=== PATIENT | female | born 1955 | race Caucasian/White ===

== ENCOUNTER 2016-11-01 12:32 | Emergency (ER) | payer MEDICARE, OTHER ==
[2016-11-01 14:57] LABS: BILIRUBIN NEGATIVE (NEGATIVE); BLOOD 1+ Ery/uL (NEGATIVE); CLARITY CLEAR (CLEAR); COLOR YELLOW (YELLOW); GLUCOSE (U) NORMAL (NORMAL); KETONE (U) TRACE mg/dL (NEGATIVE); LEUKOCYTES 2+ Leu/uL (NEGATIVE); NITRITE NEGATIVE (NEGATIVE); PROTEIN NEGATIVE (NEGATIVE); SPECIFIC GRAVITY >=1.030 (1.001-1.030); UROBILINOGEN 0.2 mg/dL (0.2-1.0); pH 5.5 (5.0-9.0)
[2016-11-01 15:18] LABS: BACTERIA TRACE; URINARY WBC 20-50
[2016-11-01 15:26] LABS: BASOPHIL 0.4 % (0-2); EOSINOPHIL 0.9 % (0-5); HCT 32.1 % (37.0-47.0); HGB 9.5 g/dl (12.5-16.0); LYMPHOCYTE 16.2 % (15-48); MCH 22.8 pg (25.0-31.0); MCHC 29.6 g/dL (32.0-36.0); MCV 77.2 fL (78.0-100.0); MONOCYTE 7.9 % (0-12); MPV 8.4 fL (6.0-9.5); NEUTROPHIL 74.6 % (41-80); PLT 533 K/uL (150-400); RBC 4.16 M/uL (4.20-5.40); RDW 18.7 % (11.5-14.0); WBC 9.8 K/uL (4.0-10.5)
[2016-11-01 15:48] LABS: CREATININE 0.6 mg/dL (0.5-1.0); POTASSIUM 4.5 mmol/L (3.5-5.1)
== END 2016-11-01 17:31 | disposition home or self-care (01) ==
LOC: FER 12:32
PROVIDERS: Internal Medicine
DX: S29.012A Strain of muscle and tendon of back wall of thorax, initial encounter (principal); N39.0 Urinary tract infection, site not specified; M79.604 Pain in right leg; R06.02 Shortness of breath; E11.9 Type 2 diabetes mellitus without complications; Z88.2 Allergy status to sulfonamides; Z86.711 Personal history of pulmonary embolism; Z79.01 Long term (current) use of anticoagulants; Z79.899 Other long term (current) drug therapy; Z86.718 Personal history of other venous thrombosis and embolism; Z79.84 Long term (current) use of oral hypoglycemic drugs
CPT/HCPCS: 36415; 71020; 71275; 80048; 81001; 85025; Q9967

== ENCOUNTER 2016-12-19 07:22 | Emergency (ER) | payer MEDICARE, OTHER ==
[2016-12-19 08:06] LABS: BASOPHIL 0.8 % (0-2); EOSINOPHIL 1.1 % (0-5); HCT 28.8 % (37.0-47.0); HGB 8.4 g/dl (12.5-16.0); MCH 22.3 pg (25.0-31.0); MCHC 29.2 g/dL (32.0-36.0); MCV 76.4 fL (78.0-100.0); MONOCYTE 8.2 % (0-12); MPV 8.1 fL (6.0-9.5); NEUTROPHIL 73.9 % (41-80); PLT 562 K/uL (150-400); RBC 3.77 M/uL (4.20-5.40); RDW 20.5 % (11.5-14.0)
[2016-12-19 08:13] LABS: PROTHROMBIN TIME 12.8 SECONDS (11.7-14.0); PTT 34.5 SECONDS (23.2-31.4)
[2016-12-19 08:14] LABS: WBC 8.3 K/uL (4.0-10.5)
[2016-12-19 08:15] LABS: D-DIMER 0.29 ug/mLFEU (0.00-0.41)
[2016-12-19 08:28] LABS: ALBUMIN 4.3 g/dL (3.5-5.0); BILIRUBIN - TOTAL 0.3 mg/dL (0.1-1.0); CREATININE 0.6 mg/dL (0.5-1.0); GLOBULIN (CALCULATION) 2.9 g/dL (2.2-4.2); POTASSIUM 4.2 mmol/L (3.5-5.1); TOTAL PROTEIN 7.2 g/dL (6.4-8.3)
[2016-12-19 08:34] LABS: BILIRUBIN NEGATIVE (NEGATIVE); BLOOD NEGATIVE Ery/uL (NEGATIVE); COLOR YELLOW (YELLOW); GLUCOSE (U) NORMAL (NORMAL); KETONE (U) NEGATIVE (NEGATIVE); LEUKOCYTES 2+ Leu/uL (NEGATIVE); NITRITE NEGATIVE (NEGATIVE); PROTEIN NEGATIVE (NEGATIVE); SPECIFIC GRAVITY 1.025 (1.001-1.030); UROBILINOGEN 0.2 mg/dL (0.2-1.0); pH 5.5 (5.0-9.0)
[2016-12-19 08:35] LABS: CLARITY HAZY (CLEAR)
[2016-12-19 08:36] LABS: MUCOUS TRACE; URINARY RBC RARE
== END 2016-12-19 08:52 | disposition home or self-care (01) ==
LOC: FER 07:22
PROVIDERS: Emergency Medicine
DX: R05 Cough (principal); M54.9 Dorsalgia, unspecified; E11.9 Type 2 diabetes mellitus without complications; E07.9 Disorder of thyroid, unspecified; Z86.711 Personal history of pulmonary embolism; Z84.89 Family history of other specified conditions; Z88.2 Allergy status to sulfonamides; Z79.01 Long term (current) use of anticoagulants; Z79.84 Long term (current) use of oral hypoglycemic drugs; Z79.891 Long term (current) use of opiate analgesic; Z79.899 Other long term (current) drug therapy
CPT/HCPCS: 36415; 71020; 80053; 81001; 85025; 85379; 85610; 85730; 99283

== ENCOUNTER 2020-10-13 08:54 | Emergency (ER) | payer MEDICARE, OTHER, SELFPAY ==
[~2020-10-13 08:54] MED LIST: MOTRIN600 MG PO
[2020-10-13] MEDS ORDERED: LEVOTHYROXINE75 MC1 PO (09:13)
[2020-10-13] MEDS ORDERED: POTASSIUM CHLO10 ME1 PO (09:13)
[2020-10-13] MEDS ORDERED: HYDROCODON-ACE1 EAC2 PO (09:14)
[2020-10-13] MEDS ORDERED: ALENDRONATE SOD70 MG PO (09:15)
[2020-10-13] MEDS ORDERED: VENTOLIN HFA18 GM INH (09:15)
[2020-10-13] MEDS ORDERED: ATORVASTATIN CA20 MG PO (09:16)
[2020-10-13] MEDS ORDERED: OS-CAL500 MG PO (09:16)
[2020-10-13] MEDS ORDERED: GABAPENTIN 100100 MG PO (09:17)
[2020-10-13] MEDS ORDERED: HCTZ12.5 MG PO (09:17)
[2020-10-13] MEDS ORDERED: METFORMIN HCL500 M3 PO (09:17)
[2020-10-13] MEDS ORDERED: FOLIC ACID1 M1 PO (09:18)
== END 2020-10-13 11:46 | disposition home or self-care (01) ==
LOC: FER 08:54
DX: S30.0XXA Contusion of lower back and pelvis, initial encounter (principal); J45.909 Unspecified asthma, uncomplicated; E11.9 Type 2 diabetes mellitus without complications; Z88.2 Allergy status to sulfonamides; Z87.19 Personal history of other diseases of the digestive system; W10.9XXA Fall (on) (from) unspecified stairs and steps, initial encounter; Y92.009 Unspecified place in unspecified non-institutional (private) residence as the place of occurrence of the external cause
CPT/HCPCS: 72192